=== PATIENT | female | born 1970 | race Caucasian/White ===

== ENCOUNTER 2017-01-10 02:15 | Emergency (ER) | payer BC ==
[~2017-01-10] VITALS: Ht 167.6 cm; Wt 78.1 kg
[~2017-01-10 02:15] MED LIST: TYLENOL WITH C1 EACH PO
[2017-01-10 02:51] LABS: HEMATOCRIT 40.4 % (36.0-46.0); MCH 29.9 PG (29.0-34.0); MCHC 35.1 G/DL (30.0-36.0); MCV 85.1 FL (83-99); MEAN PLAT.VOLUME 9.1 uM^3 (9.5-12.4); PLATELET COUNT 395 K/uL (156-360); RBC DIS.WIDTH-CV 13.2 % (11.8-14.6); RBC DIS.WIDTH-SD 41.4 % (39-53); RED BLOOD COUNT 4.75 M/uL (3.80-5.20); WHITE BLOOD COUNT 6.6 K/uL (4.1-10.2)
[2017-01-10 03:03] LABS: CHLORIDE 104 mEq/L (99-109); POTASSIUM 3.8 mEq/L (3.7-5.4); SODIUM 140 mEq/L (136-147)
[2017-01-10 03:04] LABS: GLUCOSE 110 mg/dL (70-99)
[2017-01-10 03:06] LABS: ANION GAP 16 MEQ/L (2-14)
[2017-01-10 03:07] LABS: SERUM ETHYL ALCOHOL 138 mg/dL
[2017-01-10 03:08] LABS: GFR ESTIMATE (CALCULATED) > 59 mL/min/
[2017-01-10 03:10] LABS: UREA NITROGEN (BUN) 9 mg/dL (9-23)
[2017-01-10 03:11] LABS: SALICYLATE < 5.0 MG/DL (15-30)
[2017-01-10 03:18] LABS: QUANTITATIVE HCG < 4.0 MIU/ML
[2017-01-10 07:28] VITALS: BP 114/73
== END 2017-01-10 07:28 | disposition home or self-care (01) ==
LOC: EME 02:15
PROVIDERS: Emergency Medicine
DX: F10.129 Alcohol abuse with intoxication, unspecified (principal); F32.9 Major depressive disorder, single episode, unspecified; R00.0 Tachycardia, unspecified; Y90.6 Blood alcohol level of 120-199 mg/100 ml; F17.200 Nicotine dependence, unspecified, uncomplicated
CPT/HCPCS: 71010; 80048; 84702; 85027; 90837; 93005; 99281; 99284; G0480; J1630; J2060